=== PATIENT | female | born 1960 | race Two or more races ===

== ENCOUNTER 2024-03-15 21:27 | Emergency (ER) | payer OTHER ==
[~2024-03-15] VITALS: Ht 157.5 cm; Wt 58.2 kg
--- NOTE | 2024-03-15 22:52 | DVH ---
CLINICAL INDICATION: pain/injury TECHNIQUE: 3 radiographic views of the right shoulder were obtained. Comparison: None FINDINGS/IMPRESSION: There is no evidence of acute fracture or dislocation. The visualized joint space is well maintained. The alignment is anatomical. There is no radiopaque foreign body.
[2024-03-16 03:37] VITALS: BP 147/84; PULSE 78; RESP 19; TEMP 98.1; O2SAT 96
[2024-03-16] MEDS ORDERED: DICL50TA2 PO (03:42)
--- NOTE | 2024-03-16 03:42 | ED.PDOC ---
Back pain HPI HPI Comments This is a 63-year-old female presents with her friend chief complaint right collar bone pain. Patient states symptoms started about 1 week ago denies any known injury he reports pain 8/10 on pain scale throbbing sharp in nature nonradiating type pain. Counter pain medication with some relief. She denies numbness, weakness, fever or chills. Chief Complaint: Upper Extremity Time Seen by MD: 21:56 Reviewed Notes: Nurses Notes, Medications, Allergies Allergies: Coded Allergies: NO KNOWN ALLERGIES (Unverified , 03/15/24) Information Source: Patient, Relative (Sibling) Mode of Arrival: Ambulatory Past Medical History PAST MEDICAL HISTORY: Denies Surgical History: Denies all surgeries JUNIOR GRAPHIC DESIGNER History: No Pertinent JUNIOR GRAPHIC DESIGNER History Family History Family History: Reviewed,noncontributory to illness Social History Smoker: Non-Smoker Alcohol: Denies ETOH Use Drugs: Denies Drug Use Constitutional: denies: chills, diaphoresis, fatigue, fever, malaise, sweats, weakness, others EENTM: denies: blurred vision, double vision, ear bleeding, ear discharge, ear drainage, ear pain, ear ringing, eye pain, eye redness, hearing loss, mouth pain, mouth swelling, nasal discharge, nose bleeding, nose congestion, nose pain, photophobia, tearing, throat pain, throat swelling, voice changes, others Respiratory: denies: cough, hemoptysis, orthopnea, SOB at rest, shortness of breath, SOB with excertion, stridor, wheezing, others Cardiovascular: denies: chest pain, dizzy spells, diaphoresis, Dyspnea on exertion, edema, irregular heart beat, left arm pain, lightheadedness, palpitations, PND, syncope, others Gastrointestinal: denies: abdomen distended, abdominal pain, blood streaked bowels, constipated, diarrhea, dysphagia, difficulty swallowing, hematemesis, melena, nausea, poor appetite, poor fluid intake, rectal bleeding, rectal pain, vomiting, others Genitourinary: denies: abnormal vagina bleeding, burning, dyspareunia, dysuria, flank pain, frequency, hematuria, incontinence, pain, , vagina discharge, urgency, others Neurological: denies: dizziness, fainting, headache, left sided numbness, left sided weakness, numbness, paresthesia, pre-existing deficit, right sided numbness, right sided weakness, seizure, speech problems, tingling, tremors, weakness, others Musculoskeletal: reports: others (Clavicle pain right); denies: back pain, gout, joint pain, joint swelling, muscle pain, muscle stiffness, neck pain Integumetry: denies: bruises, change in color, change in hair/nails, dryness, laceration, lesions, lumps, rash, wounds, others Allergic/Immunocompromised: denies: Difficulty Healing, Frequent Infections, Hives, Itching, others Hematologic/Lymphatic: denies: anemia, blood clots, easy bleeding, easy bruising, swollen glands, others Psychiatric: denies: anxiety, bipolar disorder, depression, hopeless, panic disorder, schizophrenia, sleepless, suicidal, others Physical Exam General Appearance: No Apparent Distress, Normal HEENT: Pharynx Normal Neck: Full Range of Motion, Non-Tender Respiratory: Chest Non-Tender, Lungs Clear, No Respiratory Distress, Normal Breath Sounds Cardiovascular: No Edema, No JVD, No Murmur, No Gallop, Normal Peripheral Pu lses, Regular Rate/Rhythm Breast Exam: Deferred Gastrointestinal: No Organomegaly, Non Tender, No Pulsatile Mass, Normal Bowel Sounds, Soft Genitalia: Deferred Pelvic: Deferred Rectal: Deferred Extremities: Normal capillary refill, Normal inspection, Normal range of motion, Non-tender, No pedal edema Musculoskeletal : Location: Right Extremity Location: Clavicle (Tenderness Palpated over right sternoclavicular joint with noted trace edema. The crepitus or bony prominence without erythema lesions lacerations abrasions.) Apperance: Normal Neurologic: Alert, warehouse stock clerk II-XII nml as Tested, No Motor Deficits, Normal Affect, Normal Mood, No Sensory Deficits Cerebellar Function: Normal Reflexes: Normal Skin: Dry, Normal Color, Warm Lymphatic: No Adenopathy Was a procedure done? Was a procedure done?: No Back Pain Differential Dx Differential Diagnosis: Fracture, Musculoskeletal Pain, Strain X-Ray, Labs, Meds, VS Vital Signs Date Time Temp Pulse Resp B/P (MAP) Pulse Ox O2 Delivery O2 Flow Rate FiO2 03/16/24 03:37 98.1 78 19 147/84 (105) 96 98.1 03/16/24 03:37 78 19 96 Room Air 03/15/24 21:44 98.1 85 16 149/50 (83) 96 X-Ray, Labs, Meds, VS Comment Clavicle x-ray shows no acute findings or osseous lesions. It is likely arthritis of the sternoclavicular joint/possibly strain. [id number] Advil or ibuprofen as needed for pain per labeled dosing instructions. Follow up with her PCP in 2-3 days as necessary consider further imaging if symptoms persist. ER return precautions given patient indicated understanding agrees with discharge plan of care. Time of 1ST Reevaluation: 03:37 Reevaluation 1ST: Improved Patient Education/Counseling: Diagnosis, Treatment, Prognosis, Need For Follow Up Family Education/Counseling: Diagnosis, Treatment, Prognosis, Need For Follow Up Departure 1 Departure Time of Disposition: 03:37 Impression: Primary Impression: Arthritis of sternoclavicular joint Disposition: 01 HOME / SELF CARE / HOMELESS Condition: Stable Discharged With: Relative (Sibling) Critical Care Note Critical Care Time?: No Stability Stability form required: RONALDO Tatum Mar 16, 2024 03:42
== END 2024-03-16 03:47 | disposition home or self-care (01) ==
LOC: ER 21:27
DX: M13.88 Other specified arthritis, other site (principal)
CPT/HCPCS: 73030